=== PATIENT | female | born 1980 | race Two or more races ===

== ENCOUNTER 2020-01-26 02:38 | Outpatient (CLI) | payer OTHER ==
[2020-01-26] MEDS ORDERED: PRENATAL TABLE1 EACH PO (02:57)
[2020-01-26] MEDS ORDERED: FOLIC ACID20 MG PO (02:57)
== END 2020-01-26 08:52 | disposition home or self-care (01) ==
LOC: OBS/DEL 02:38
PROVIDERS: ATTEND Obstetrics & Gynecology
DX: O60.03 Preterm labor without delivery, third trimester (principal)

== ENCOUNTER 2020-03-03 09:30 | Inpatient (IN) | payer OTHER ==
[~2020-03-03] VITALS: Ht 170.2 cm; Wt 83.0 kg
[~2020-03-03 09:30] MED LIST: FOLIC ACID20 MG PO; PRENATAL TABLE1 EACH PO
== END 2020-03-26 14:27 | disposition home or self-care (01) | DRG 798 ==
LOC: LDR 03-24 06:37 → SURG-SUITE 03-24 06:37 → OB/GYN 03-24 09:30 → LDR 03-24 09:30 → SURG-SUITE 03-25 01:58
PROVIDERS: ADMIT Obstetrics & Gynecology; ATTEND Obstetrics & Gynecology
PROC: 10E0XZZ Delivery of Products of Conception, External Approach (ICD-10-PCS; principal; 2020-03-24)
PROC: 3E033VJ Introduction of Other Hormone into Peripheral Vein, Percutaneous Approach (ICD-10-PCS; 2020-03-24)
PROC: 4A1HXFZ Monitoring of Products of Conception, Cardiac Rhythm, External Approach (ICD-10-PCS; 2020-03-24)
PROC: 0UB70ZZ Excision of Bilateral Fallopian Tubes, Open Approach (ICD-10-PCS; 2020-03-25)
DX: O69.81X0 Labor and delivery complicated by cord around neck, without compression, not applicable or unspecified (principal); Z37.0 Single live birth; O99.824 Streptococcus B carrier state complicating childbirth; Z3A.40 40 weeks gestation of pregnancy; Z30.2 Encounter for sterilization; Z20.828 Contact with and (suspected) exposure to other viral communicable diseases